=== PATIENT | male | born 1945 ===

== ENCOUNTER 2024-04-19 08:12 | Day surgery (SDC) | payer OTHER, MEDICARE ==
[2024-04-16 10:39] VITALS: BMI 23.6
--- NOTE | 2024-04-18 18:55 | HP ---
HISTORY AND PHYSICAL DATE OF SURGERY: 04/19/2024. HISTORY OF PRESENT ILLNESS: Trace Carcamo is a gentleman who was seen with progressive right shoulder pain. We discussed options regarding treatment. He elected to proceed with right shoulder arthroscopy. Consent obtained. PAST MEDICAL HISTORY: Noncontributory. PAST SURGICAL HISTORY: Noncontributory. DAILY MEDICATIONS: Unknown. ALLERGIES: None reported. SOCIAL HISTORY: Denies tobacco use. PHYSICAL EVALUATION OF THE RIGHT SHOULDER: Flexion is 140 degrees. Abduction is 90 degrees. External rotation is neutral with significant weakness. Impingement positive at 70 degrees. Drop-arm sign is positive. Distal neurovascular exam is intact. IMAGING STUDIES: Right shoulder radiographs revealed a type 2 acromion, cystic changes of the tuberosity and acromioclavicular joint osteoarthritis. Right shoulder MRI revealed large rotator cuff tendon tear, labral tear, and bicipital tendinitis. IMPRESSION: 1. Right shoulder impingement with rotator cuff tear. 2. Right shoulder labral tear. 3. Right shoulder bicipital tendinitis. 4. Right shoulder acromioclavicular joint osteoarthritis. PLAN: Right shoulder arthroscopy with subacromial decompression, rotator cuff repair, biceps tenodesis, Karen and debridement of labral tear. MMODL / IJN: [id number] /
[~2024-04-19 08:12] MED LIST: HYDROmorphone 0.5 MG/0.5 ML SYRINGE IVP PRN; LIDOCAINE 1% (10MG/ML) FOR IV START INTRADERMA PRN; droPERidol 5 MG/2 ML VIAL IVP ONE
[2024-04-19] MEDS: IV FLUID CONTINUATION 1,000 ML IV ONE (08:43)
[2024-04-19 09:13] LABS: Glucose,Whole Blood 100 mg/dL (70-110)
[2024-04-19] MEDS: ONDANSETRON 4 MG/2 ML VIAL IVP ONE (09:21)
[2024-04-19] MEDS: DEXAMETHASONE SOD PHOSPHATE 4 MG/ML 1 ML VIAL IV ONE (09:21)
[2024-04-19] MEDS: LACTATED RINGERS 1,000 ML IV SCH (09:21)
[2024-04-19] MEDS: MIDAZOLAM 2 MG/2 ML VIAL IV ONE (09:35)
[2024-04-19] MEDS ORDERED: LIDOCAINE 1% INJ 10MG/ML (20 ML MDV) ONE (09:49)
[2024-04-19] MEDS ORDERED: fentaNYL (PF) 50 MCG/ML 2 ML AMP ONE (09:49)
[2024-04-19] MEDS ORDERED: DEXAMETHASONE SOD PHOSPHATE 4 MG/ML 1 ML VIAL ONE (09:49)
[2024-04-19] MEDS ORDERED: ePHEDrine 50 MG/ML 1 ML VIAL ONE (09:49)
[2024-04-19] MEDS ORDERED: ROPIVACAINE 5 MG/ML 30 ML VIAL ONE (09:49)
[2024-04-19] MEDS ORDERED: SUCCINYLCHOLINE CHLORIDE 200 MG/10 ML VIAL IV ONE (09:49)
[2024-04-19] MEDS ORDERED: PROPOFOL 10 MG/ML 20 ML VIAL IV ONE (09:49)
[2024-04-19 11:36] VITALS: TEMP 97
--- NOTE | 2024-04-19 11:40 | P.OP ---
Date of Procedure: 04/19/24 Preoperative Diagnosis: Right shoulder impingement Postoperative Diagnosis: 1. Right shoulder rotator cuff tear 2. Right shoulder impingement 3. Right shoulder acromioclavicular joint osteoarthritis 4. Right shoulder superficial labral tear Procedure(s) Performed: 1. Right shoulder arthroscopic rotator cuff repair 2. Right shoulder arthroscopic subacromial decompression 3. Right shoulder arthroscopic Karen procedure 4. Right shoulder arthroscopic debridement superficial labral tear Implants: 2Arthrex 5.5 swivel lock anchors Anesthesia: VICKIE, regional Surgeon: Alberto [employer]: Doron Lama Estimated Blood Loss (ml): 10 Pathology: none sent Condition: stable Disposition: PACU Indications for Procedure: 78-year-old patient seen with progressive right shoulder pain. After having treatment options discussed, he elected to proceed with arthroscopy. Operative Findings: See description of procedure Description of Procedure: Patient underwent an interscalene block by department of anesthesia. The patient was then taken to the operative suite. The patient underwent a general anesthetic by the department of anesthesia. The patient was placed into a lateral position and secured. There was appropriate padding of the bony prominence. Right shoulder was then prepped and draped in normal sterile orthopedic fashion. We placed the extremity in 10 pounds of longitudinal traction. A posterior incision was now made for a posterior working portal site. The trocar and cannula were inserted into the glenohumeral joint. Arthroscopy was initiated. Spinal needle was now inserted anteriorly, to ascertain the anterior working portal site. An incision was now made in that area, a trocar was inserted followed by a probe. There was superficial tearing of the superior labrum. There were mild grade I chondromalacia changes of the glenohumeral joint. The long head biceps tendon was absent. There was evidence of a very large rotator cuff tendon tear that I could visualize. I introduced a motorized shaver and debrided out the superficial labral tear. The residual labrum was stable. Instruments were now removed from the glenohumeral joint. Utilizing the posterior working portal site, the trocar and cannula were inserted into the subacromial space. Arthroscopy initiated. I made an incision 2 fingerbreadths lateral to the acromion. I introduced my trocar followed by my ArthroCare ablator. I now began ablating thick subacromial bursal tissue, which exposed the undersurface of the anterior acromion. There was diminished subacr omial space. There was a very prominent anterior acromion. A motorized bur was introduced and a subacromial decompression was performed. I also excised some osteophytes off the inferior aspect of the distal clavicle. The AC joint was visualized and noted to be fairly arthritic. The motorized bur was introduced in the anterior portal site and a Karen procedure was performed without difficulty removing 8 mm off the distal clavicle, decompressing the AC joint nicely. I turned my attention to the rotator cuff. There was a massive rotator cuff tendon tear with retraction all the way to the glenoid. And involve the entire supraspinatus tendon. The tear was about 4 cm in diameter again retracted to the glenoid. The posterior portion of the tear was mobile but the anterior and superior were not. I now began meticulously freeing up the rotator cuff tendon along the anterior and midportion areas. I was able to finally mobilized the tendon to get a [id number] repair centrally. I abraded the footprint with a motorized bur. With the assistance of Won PRABHAKAR I passed 4 [id number] sutures converging the tendon centrally. I now passed 2 inverted mattress sutures anteriorly and posteriorly with good bites of rotator cuff tendon. With the assistance of Won PRABHAKAR I punched a hole in the anterior footprint area for insertion of an anchor. The anterior suture limbs along with one of the [id number] suture limbs were passed through the eyelet of an Arthrex 5.5 swivel lock anchor. We placed the anchor into the preplanned hole. I held in position while Won PRABHAKAR tensioned the sutures and deployed the anchor with good fixation noted. All residual suture limbs for that anchor were clipped. I now punched a hole more laterally in the footprint area for insertio n of an anchor. The posterior suture limbs were passed through the eyelet of an Arthrex 5.5 swivel lock anchor. I placed into the preplanned hole. I held in position while Won PRABHAKAR tension the suture limbs and deployed the anchor with good fixation noted. All residual suture limbs were clipped. We had good compression of the tendon along the entire footprint which was under some tension but we had good coverage and it appeared to have good stability. Instruments now removed from the portal sites. All portal sites were approximated with nylon suture. Sterile dressings were applied followed by a shoulder immobilizer. Doron PRABHAKAR assisted in this complex case. The patient was awakened, transferred to a bed, and taken to recovery in stable condition.
[2024-04-19 12:46] VITALS: RESP 20
[2024-04-19 13:45] VITALS: BP 112/70; PULSE 78
--- NOTE | 2024-04-24 11:51 | P.ANPRN ---
Procedure Note - Anesthesia - Nerve Block Performed Right Interscalene Single Time Out Performed: Yes Date of Procedure: 04/19/24 Location of Patient: PreOp Indication: Acute Post-Operative Pain, Requested by Surgeon Sedation Type: Sedate with meaningful contact maintained Preparation: Sterile Prep Position: Supine Needle Types: Pajunk Needle Gauge: 21 Ultrasound used to visualize needle placement: Yes Ultrasound used to observe medication spread: Yes Blood Aspirated: No Pain Paresthesia on Injection Noted: No Resistance on Injection: Normal Image Stored and Saved: Yes Events: Uneventful and Well Tolerated (Ropivacaine 0.5% 20 cc plus dexamethasone 4 mg)
[2024-04-24 13:02] LABS: Glucose,Whole Blood 122 mg/dL (70-110)
== END 2024-04-19 13:43 | disposition home or self-care (01) ==
LOC: OR 08:12
PROVIDERS: ATTEND Orthopaedic Surgery
DX: S43.491A Other sprain of right shoulder joint, initial encounter (principal); M75.101 Unspecified rotator cuff tear or rupture of right shoulder, not specified as traumatic; M75.41 Impingement syndrome of right shoulder; M19.011 Primary osteoarthritis, right shoulder; M75.21 Bicipital tendinitis, right shoulder; G89.18 Other acute postprocedural pain; X58.XXXA Exposure to other specified factors, initial encounter
CPT/HCPCS: 64415